=== PATIENT | male | born 1955 | race Caucasian/White ===

== ENCOUNTER 2016-07-23 21:44 | Emergency (ER) | payer MEDICARE ==
[~2016-07-23] VITALS: Ht 177.8 cm; Wt 102.1 kg
[~2016-07-23 21:44] MED LIST: /WARF5TA OR; ACTO15TA OR; CARD240T3 OR; CARDIA XT; CARDIA XT PO; CARI350T OR; CARTIA; CRES20TA OR; FOLI1TAB2 PO; HUMU70IN SC; HYDR-3713 PO; HYDR25TA6 OR; INSULIN 70/30 SQ; LIDO5DIS36 TD; LISI40TA OR; NEUR600T PO; OXYC1SOL PO; PRAD150C PO; PRAV40TA2 PO; SOMA350T PO; SOTA120T PO; TYLE325T5 PO; VALS1TAB46 PO; VALS1TAB47 PO; [UNRECOGNIZED DRUG - CODE] OR; hydrocodone PO
[2016-07-23] MEDS ORDERED: AMLO5TAB2 PO (21:59)
[2016-07-23] MEDS ORDERED: PRAD150C PO (21:59)
[2016-07-23] MEDS ORDERED: ASPI1TAB PO (21:59)
[2016-07-23] MEDS ORDERED: TOUJ1.2I SC (21:59)
[2016-07-23] MEDS ORDERED: BISO5TAB5 PO (21:59)
[2016-07-23] MEDS ORDERED: HYDR12CA PO (21:59)
[2016-07-24 00:12] VITALS: BP 122/58
--- NOTE | 2016-07-24 09:50 | REP ---
RIGHT ELBOW, FOUR VIEWS: There is no evidence of acute fracture or dislocation. There is mild linear ligamentous calcification along the lateral humeral epicondyle. There appears to be soft tissue swelling over the olecranon. I do not see a definite joint effusion. IMPRESSION: No evidence of acute fracture or dislocation. Soft tissue swelling over the olecranon. Mild lateral humeral epicondyle ligamentous calcification. Signed by Sarbjit Helms MD 07/24/2016 04:19 P
== END 2016-07-24 00:05 | disposition home or self-care (01) ==
LOC: M ED 23:20
DX: S50.01XA Contusion of right elbow, initial encounter (principal); X50.9XXA Other and unspecified overexertion or strenuous movements or postures, initial encounter; Y92.019 Unspecified place in single-family (private) house as the place of occurrence of the external cause; Y93.89 Activity, other specified; Y99.8 Other external cause status; I50.9 Heart failure, unspecified; E11.9 Type 2 diabetes mellitus without complications; Z79.899 Other long term (current) drug therapy; Z79.82 Long term (current) use of aspirin; Z79.4 Long term (current) use of insulin; Z88.8 Allergy status to other drugs, medicaments and biological substances; Z88.5 Allergy status to narcotic agent; Z95.0 Presence of cardiac pacemaker; E78.9 Disorder of lipoprotein metabolism, unspecified

== ENCOUNTER 2017-12-29 09:09 | Day surgery (SDC) | payer MEDICARE ==
[~2017-12-29 09:09] MED LIST changes: -/WARF5TA OR; -ACTO15TA OR; -CARD240T3 OR; -CARDIA XT; -CARDIA XT PO; -CARI350T OR; -CARTIA; -CRES20TA OR; -FOLI1TAB2 PO; -HUMU70IN SC; -HYDR-3713 PO; -HYDR25TA6 OR; -INSULIN 70/30 SQ; -LIDO5DIS36 TD; +LIDOCAINE 2% INJ 100 MG/5 ML SDV (FOR ANES.) As Ordered; -LISI40TA OR; -NEUR600T PO; -OXYC1SOL PO; -PRAD150C PO; -PRAV40TA2 PO; +PROPOFOL 200 MG/20 ML VIAL As Ordered; -SOMA350T PO; -SOTA120T PO; -TYLE325T5 PO; -VALS1TAB46 PO; -VALS1TAB47 PO; -[UNRECOGNIZED DRUG - CODE] OR; -hydrocodone PO
[2017-12-29] MEDS: NS 1,000 ML IV (09:25)
[2017-12-29 09:47] LABS: BEDSIDE GLUCOSE 131 MG/DL (80-115)
[2017-12-29] MEDS ORDERED: PROPOFOL 200 MG/20 ML VIAL As Ordered (11:04)
== END 2017-12-29 12:08 | disposition home or self-care (01) ==
LOC: M OPP 09:09
DX: D62 Acute posthemorrhagic anemia (principal); D12.0 Benign neoplasm of cecum; D12.2 Benign neoplasm of ascending colon; D12.3 Benign neoplasm of transverse colon; D12.7 Benign neoplasm of rectosigmoid junction; K57.30 Diverticulosis of large intestine without perforation or abscess without bleeding; K64.8 Other hemorrhoids; K29.70 Gastritis, unspecified, without bleeding; B96.81 Helicobacter pylori [H. pylori] as the cause of diseases classified elsewhere; R00.8 Other abnormalities of heart beat; I25.10 Atherosclerotic heart disease of native coronary artery without angina pectoris; I50.9 Heart failure, unspecified; I11.0 Hypertensive heart disease with heart failure; Z95.1 Presence of aortocoronary bypass graft; Z95.810 Presence of automatic (implantable) cardiac defibrillator; E78.5 Hyperlipidemia, unspecified; E10.9 Type 1 diabetes mellitus without complications; R06.83 Snoring; Z88.5 Allergy status to narcotic agent; Z79.82 Long term (current) use of aspirin; Z79.899 Other long term (current) drug therapy; Z79.4 Long term (current) use of insulin; Z79.01 Long term (current) use of anticoagulants; Z80.1 Family history of malignant neoplasm of trachea, bronchus and lung
CPT/HCPCS: 45385

== ENCOUNTER → 2018-01-06 | Outpatient (CLI) | payer OTHER, MEDICARE | LOC: M PAIN 14:30 | DX: M79.18 Myalgia, other site (principal); M96.1 Postlaminectomy syndrome, not elsewhere classified; E11.9 Type 2 diabetes mellitus without complications; E78.00 Pure hypercholesterolemia, unspecified; I10 Essential (primary) hypertension; Z79.4 Long term (current) use of insulin; Z79.82 Long term (current) use of aspirin; Z79.899 Other long term (current) drug therapy; Z88.5 Allergy status to narcotic agent; Z86.79 Personal history of other diseases of the circulatory system; Z87.891 Personal history of nicotine dependence | CPT/HCPCS: G0463 ==

== ENCOUNTER → 2018-02-01 | Outpatient (CLI) | payer MEDICARE ==
[2018-02-01 16:57] LABS: INR 1.23; PROTHROMBIN TIME 15.7 SECONDS (12.1-14.4)
== END ==
LOC: M LRY 11:16
DX: I48.0 Paroxysmal atrial fibrillation (principal)
CPT/HCPCS: 85610

== ENCOUNTER → 2018-02-15 | Outpatient (CLI) | payer MEDICARE ==
[2018-02-15 16:54] LABS: INR 3.24; PROTHROMBIN TIME 33.8 SECONDS (12.1-14.4)
== END ==
LOC: M LRY 11:40
DX: I48.0 Paroxysmal atrial fibrillation (principal)
CPT/HCPCS: 85610

== ENCOUNTER → 2018-07-21 | Outpatient (CLI) | payer MEDICARE ==
[~2018-07-21] MED LIST changes: +ACTO15TA OR; +AMLO5TAB6 PO; +ASPI81TA26 PO; +BISO5TAB5 PO; +CARD240T3 OR; +CARDIA XT; +CARDIA XT PO; +CARI350T OR; +CARTIA; +COUM1TAB17 OR; +COUM6TAB PO; +CRES10TA PO; +CRES20TA OR; +FOLI1TAB11 PO; +GABA600T4 PO; +HUMU70IN SC; +HYDR-3713 PO; +HYDR-3910 PO; +HYDR12CA PO; +HYDR25TA PO; +HYDR25TA6 OR; +INSUHUMDS SC; +INSULIN 70/30 SQ; +IRBE300T10 PO; +LIDO5DIS41 TD; -LIDOCAINE 2% INJ 100 MG/5 ML SDV (FOR ANES.) As Ordered; +LISI40TA OR; +NEUR600T PO; +OXYC1SOL3 PO; +PANT40TA3 PO; +PRAD150C6 PO; +PRAV40TA2 PO; -PROPOFOL 200 MG/20 ML VIAL As Ordered; +SOMA350T PO; +SOTA120T PO; +TOUJ1.2I SC; +TYLE325T5 PO; +VALS1TAB66 PO; +VALS1TAB67 PO; +[UNRECOGNIZED DRUG - CODE] OR; +hydrocodone PO
[2018-07-21 11:33] LABS: HEMATOCRIT 32.6 % (42.0-52.0); HEMOGLOBIN 10.7 g/dl (13.5-17.5); MEAN CORPUSCULAR HEMOGLOBIN 29.3 pg (27.0-33.0); MEAN CORPUSCULAR HGB CONC 32.8 g/dl (32.0-36.5); MEAN CORPUSCULAR VOLUME 89.3 fl (80.0-96.0); PLATELET COUNT, AUTOMATED 254 10^3/uL (150-450); RED BLOOD COUNT 3.65 10^6/uL (4.30-6.10); WHITE BLOOD COUNT 5.8 10^3/uL (4.0-10.0)
[2018-07-21 12:24] LABS: BLOOD UREA NITROGEN 22 MG/DL (7-18); CALCIUM LEVEL 9.1 MG/DL (8.8-10.2); CARBON DIOXIDE LEVEL 26 MEQ/L (21-32); CHLORIDE LEVEL 106 MEQ/L (98-107); GLOMERULAR FILTRATION RATE > 60.0 (>49); GLUCOSE, FASTING 136 MG/DL (70-100); POTASSIUM SERUM 4.4 MEQ/L (3.5-5.1); SODIUM LEVEL 139 MEQ/L (136-145)
[2018-07-21 12:25] LABS: ALT/SGPT 27 U/L (12-78); BILIRUBIN,TOTAL 0.4 MG/DL (0.2-1.0); TOTAL PROTEIN 7.4 GM/DL (6.4-8.2)
== END ==
LOC: M LRY 09:36
PROVIDERS: ATTEND Internal Medicine Cardiovascular Disease
DX: D64.9 Anemia, unspecified (principal); E11.9 Type 2 diabetes mellitus without complications

== ENCOUNTER → 2018-08-18 | Outpatient (CLI) | payer MEDICARE ==
[2018-08-18 17:56] LABS: HEMATOCRIT 35.4 % (42.0-52.0); HEMOGLOBIN 11.1 g/dl (13.5-17.5); MEAN CORPUSCULAR HEMOGLOBIN 26.6 pg (27.0-33.0); MEAN CORPUSCULAR HGB CONC 31.4 g/dl (32.0-36.5); MEAN CORPUSCULAR VOLUME 84.7 fl (80.0-96.0); PLATELET COUNT, AUTOMATED 241 10^3/uL (150-450); RED BLOOD COUNT 4.18 10^6/uL (4.30-6.10); WHITE BLOOD COUNT 7.4 10^3/uL (4.0-10.0)
[2018-08-18 18:30] LABS: ALBUMIN 3.9 GM/DL (3.2-5.2); ALT/SGPT 27 U/L (12-78); BILIRUBIN,TOTAL 0.3 MG/DL (0.2-1.0); BLOOD UREA NITROGEN 19 MG/DL (7-18); CALCIUM LEVEL 8.8 MG/DL (8.8-10.2); CARBON DIOXIDE LEVEL 29 MEQ/L (21-32); CHLORIDE LEVEL 102 MEQ/L (98-107); GLOMERULAR FILTRATION RATE > 60.0 (>49); GLUCOSE, FASTING 115 MG/DL (70-100); POTASSIUM SERUM 4.8 MEQ/L (3.5-5.1); SODIUM LEVEL 139 MEQ/L (136-145); TOTAL PROTEIN 7.9 GM/DL (6.4-8.2)
== END ==
LOC: M LRY 13:56
PROVIDERS: ATTEND Internal Medicine Cardiovascular Disease
DX: D64.9 Anemia, unspecified (principal); E11.9 Type 2 diabetes mellitus without complications

== ENCOUNTER → 2018-09-22 | Outpatient (CLI) | payer MEDICARE ==
[2018-09-22 13:18] LABS: HEMATOCRIT 35.1 % (42.0-52.0); HEMOGLOBIN 11.3 g/dl (13.5-17.5); MEAN CORPUSCULAR HGB CONC 32.2 g/dl (32.0-36.5); MEAN CORPUSCULAR VOLUME 87.1 fl (80.0-96.0); PLATELET COUNT, AUTOMATED 212 10^3/uL (150-450); RED BLOOD COUNT 4.03 10^6/uL (4.30-6.10); WHITE BLOOD COUNT 7.3 10^3/uL (4.0-10.0)
[2018-09-22 13:25] LABS: ALBUMIN 3.7 GM/DL (3.2-5.2); ALT/SGPT 28 U/L (12-78); BILIRUBIN,TOTAL 0.2 MG/DL (0.2-1.0); BLOOD UREA NITROGEN 21 MG/DL (7-18); CALCIUM LEVEL 8.7 MG/DL (8.8-10.2); CARBON DIOXIDE LEVEL 28 MEQ/L (21-32); CHLORIDE LEVEL 104 MEQ/L (98-107); CREATININE FOR GFR 1.08 MG/DL (0.70-1.30); GLOMERULAR FILTRATION RATE > 60.0 (>49); GLUCOSE, FASTING 135 MG/DL (70-100); POTASSIUM SERUM 4.2 MEQ/L (3.5-5.1); SODIUM LEVEL 139 MEQ/L (136-145); TOTAL PROTEIN 7.2 GM/DL (6.4-8.2)
== END ==
LOC: M LRY 11:17
PROVIDERS: ATTEND Internal Medicine Cardiovascular Disease
DX: D64.9 Anemia, unspecified (principal); E11.9 Type 2 diabetes mellitus without complications

== ENCOUNTER → 2018-10-19 | Outpatient (CLI) | payer MEDICARE ==
[2018-10-19 17:37] LABS: BLOOD UREA NITROGEN 21 MG/DL (7-18); CREATININE FOR GFR 1.02 MG/DL (0.70-1.30); FERRITIN 40 NG/ML (26-388); GLOMERULAR FILTRATION RATE > 60.0 (>49); IRON (FE) 63 UG/DL (65-175); PERCENT SATURATION 17.9 % (19.7-50.0); TOTAL IRON BINDING CAPACITY 351 UG/DL (250-450)
[2018-10-19 17:45] LABS: FOLATE > 24.0 NG/ML; VITAMIN B12 LEVEL 456 PG/ML
[2018-10-19 17:47] LABS: BASO % 0.4 % (0.0-1.0); EOS # 0.2 10^3/uL (0.0-0.50); EOS % 2.3 % (0.0-3.0); HEMATOCRIT 39.3 % (42.0-52.0); HEMOGLOBIN 12.5 g/dl (13.5-17.5); LYMPH # 1.8 10^3/uL (1.5-4.5); LYMPH % 24.6 % (24.0-44.0); MEAN CORPUSCULAR HEMOGLOBIN 27.7 pg (27.0-33.0); MEAN CORPUSCULAR HGB CONC 31.8 g/dl (32.0-36.5); MEAN CORPUSCULAR VOLUME 87.1 fl (80.0-96.0); MONO # 0.8 10^3/uL (0.0-0.8); MONO % 11.1 % (0.0-5.0); NEUTROPHILS # 4.4 10^3/uL (1.8-7.7); NEUTROPHILS % 61.2 % (36.0-66.0); PLATELET COUNT, AUTOMATED 217 10^3/uL (150-450); RED BLOOD COUNT 4.51 10^6/uL (4.30-6.10); WHITE BLOOD COUNT 7.3 10^3/uL (4.0-10.0)
== END ==
LOC: M LRY 11:07
PROVIDERS: ATTEND Internal Medicine Gastroenterology
DX: D62 Acute posthemorrhagic anemia (principal)

== ENCOUNTER → 2018-11-11 | Outpatient (CLI) | payer MEDICARE, OTHER ==
[~2018-11-11] MED LIST changes: +BISO5TAB14 PO; -BISO5TAB5 PO
[2018-11-11 14:02] LABS: BASO % 0.3 % (0.0-1.0); EOS # 0.1 10^3/uL (0.0-0.50); EOS % 1.5 % (0.0-3.0); HEMATOCRIT 35.5 % (42.0-52.0); HEMOGLOBIN 11.6 g/dl (13.5-17.5); LYMPH # 1.6 10^3/uL (1.5-4.5); LYMPH % 20.3 % (24.0-44.0); MEAN CORPUSCULAR HGB CONC 32.7 g/dl (32.0-36.5); MEAN CORPUSCULAR VOLUME 85.7 fl (80.0-96.0); MONO # 0.7 10^3/uL (0.0-0.8); MONO % 9.1 % (0.0-5.0); NEUTROPHILS # 5.4 10^3/uL (1.8-7.7); NEUTROPHILS % 68.3 % (36.0-66.0); PLATELET COUNT, AUTOMATED 226 10^3/uL (150-450); RED BLOOD COUNT 4.14 10^6/uL (4.30-6.10); WHITE BLOOD COUNT 7.9 10^3/uL (4.0-10.0)
[2018-11-11 14:24] LABS: ERYTHROCYTE SEDIMENTATION RATE 30 mm/hr (0-20)
[2018-11-11 14:42] LABS: ALBUMIN 3.8 GM/DL (3.2-5.2); ALT/SGPT 34 U/L (12-78); BILIRUBIN,TOTAL 0.4 MG/DL (0.2-1.0); BLOOD UREA NITROGEN 17 MG/DL (7-18); CARBON DIOXIDE LEVEL 28 MEQ/L (21-32); CHLORIDE LEVEL 103 MEQ/L (98-107); CREATININE FOR GFR 0.99 MG/DL (0.70-1.30); FOLATE > 24.0 NG/ML; GLOMERULAR FILTRATION RATE > 60.0 (>49); GLUCOSE, FASTING 156 MG/DL (70-100); POTASSIUM SERUM 4.5 MEQ/L (3.5-5.1); RHEUMATOID FACTOR QUANT < 10.0 IU/ML (<15.0); SODIUM LEVEL 137 MEQ/L (136-145); THYROID STIMULATING HORMONE 0.912 uIU/ML (0.358-3.740); TOTAL PROTEIN 7.2 GM/DL (6.4-8.2); VITAMIN B12 LEVEL 429 PG/ML
[2018-11-11 15:24] LABS: HEMOGLOBIN A1c 8.5 %
[2018-11-19 08:06] LABS: ANCA-ATYPICAL <1:20 titer (Neg:<1:20); ANTI DS-DNA AB <1:10 titer (.); ANTINUCLEAR ANTIBODIES DIRECT Negative (Negative); CERULOPLASMIN 28.4 mg/dL (16.0-31.0); COPPER PLASMA 120 ug/dL (72-166); CYTOPLASMIC NEUTROP AB ANCA-C <1:20 titer (Neg:<1:20); LEAD BLOOD ADULT 1 ug/dL (0-4); Lyme Disease IgG/IgM Antibodie <0.91 ISR (0.00-0.90); Lyme Disease IgM Ab Quantitati <0.80 index (0.00-0.79); MERCURY LEVEL 1.5 ug/L (0.0-14.9); PERINUCLEAR AB ANCA-P <1:20 titer (Neg:<1:20); SJOGREN'S ANTI SS-A <0.2 AI (0.0-0.9); SJOGREN'S ANTI SS-B <0.2 AI (0.0-0.9); VITAMIN B1 LEVEL WHOLE BLOOD 112.9 nmol/L (66.5-200.0); VITAMIN B6,PYRIDOXAL PHOSPHATE 6.2 ug/L (5.3-46.7); VITAMIN E(ALPHA TOCOPHEROL) 11.8 mg/L (9.0-29.0); VITAMIN E(GAMMA TOCOPHEROL) 1.7 mg/L (0.5-4.9)
[2018-11-26 11:16] LABS: DRVV SCREEN 48.8 SEC
[2018-11-26 11:21] LABS: PTT LUPUS TYPE ANTICOAG SCREEN 1.2 (0-1.2)
[2018-11-26 11:28] LABS: DRVV CONFIRM 40.2 SEC; LUPUS CONFIRM RATIO 1.1
[2018-11-26 11:31] LABS: NORMALIZED RATIO 1.09 (0.00-1.20)
== END ==
LOC: M LAB 12:31
PROVIDERS: ATTEND Psychiatry & Neurology Neurology
DX: G62.9 Polyneuropathy, unspecified (principal); Z79.899 Other long term (current) drug therapy

== ENCOUNTER → 2018-11-16 | Outpatient (CLI) | payer MEDICARE, OTHER ==
[~2018-11-16] MED LIST changes: -BISO5TAB14 PO; +BISO5TAB9 PO; +ISOVUE-370 76% 100ML VIAL (Q9967) As Ordered ONE
--- NOTE | 2018-11-17 12:29 | REP ---
CT CERVICAL SPINE IV CONTRAST: HISTORY: Neck pain. Comparison CT study is from April 26, 2014. TECHNIQUE: Helical scanning is acquired and [address] images are reformatted. Coronal and sagittal MPR images are generated. Contrast enhancement dose is 75 mL of intravenous Isovue 370. CT FINDINGS: There is extensive vascular calcification in both carotid artery bifurcations in a manner suggesting the possibility of a high-grade stenosis of the internal carotid arteries bilaterally. MRA angiography for further evaluation. Right vertebral artery is smaller than its left-sided counterpart but both are patent. There are scattered normal-sized cervical lymph nodes. No other extra vertebral abnormality. There is mild straightening of the normal cervical lordosis. Vertebral body heights are preserved. Alignment is normal in the cervical spine. At C1-2, there is osteoarthritis of the articulation between the dens and the anterior arch of C1. At the C2-3 disc level, there is minimal diffuse disc bulging. No foraminal narrowing or central canal stenosis is seen. At C3-C4, diffuse disc bulging with some calcification of the bulging disc. No central canal stenosis is seen. No bony foraminal encroachment. At C4-C5, there is degenerative narrowing of the disc and diffuse disc bulging is seen. There is left-sided uncovertebral spurring mild in degree. Minimal spurring is seen on the right. There are facet hypertrophy changes bilaterally as well. At the C5-6, there are similar changes with diffuse disc bulging and calcification in the bulging disc. No bony foraminal stenosis is seen. There are facet osteoarthritic changes. These findings are unchanged from the comparison study. At C 67, there is a moderate size calcified central disc bulge effacing the bony spinal canal. There is right-sided uncovertebral spurring producing neural foraminal encroachment. Minimal spurring is noted on the left. Findings are unchanged. At C7-T1, there is mild diffuse disc bulging as well. IMPRESSION: Degenerative spondylosis changes radiographically stable from April 26, 2014. There is multilevel foraminal spurring. This is most pronounced at C6-7. Also noted is extensive carotid bifurcation and arterial calcification and evidence of substantial proximal ICA stenosis. Correlation with MR angiography of the carotids should be considered. Electronically Signed by Abdullahi Quesada MD 11/17/2018 01:43 P
== END ==
LOC: M RAD 16:51
PROVIDERS: ATTEND Psychiatry & Neurology Neurology
DX: M25.78 Osteophyte, vertebrae (principal); M50.20 Other cervical disc displacement, unspecified cervical region
CPT/HCPCS: 72126; Q9967

== ENCOUNTER 2019-04-26 08:27 | Day surgery (SDC) | payer MEDICARE ==
[~2019-04-26] VITALS: Ht 177.8 cm; Wt 107.0 kg
[~2019-04-26 08:27] MED LIST changes: +BISO5TAB14 PO; -BISO5TAB9 PO; -IRBE300T10 PO; +IRBE300T7 PO; -ISOVUE-370 76% 100ML VIAL (Q9967) As Ordered ONE; +NS 1,000 ML IV ONE
[2019-04-26] MEDS ORDERED: propofoL 200 MG/20 ML VIAL As Ordered ONE ×2 (09:01→10:40)
[2019-04-26] MEDS ORDERED: LIDOCAINE 2% INJ 100 MG/5 ML SDV (FOR ANES.) As Ordered ONE (09:02)
[2019-04-26] MEDS ORDERED: fentaNYL 100 MCG/2 ML INJECTION (J3010) As Ordered ONE (09:43)
--- NOTE | 2019-04-26 11:26 | ROOR ---
Patient Name: Juan Freitas Procedure Date: 04/26/2019 10:08 AM Date of : 1955 Age: 63 Room: [facility] Gender: Male Note Status: Finalized Procedure: Small bowel enteroscopy Indications: Iron deficiency anemia Providers: Vance Morales MD Referring MD: Obed Brownlee MD Requesting Provider: Medicines: Monitored Anesthesia Care Complications: No immediate complications. Procedure: Pre-Anesthesia Assessment: - Prior to the procedure, a History and Physical was performed, and patient medications and allergies were reviewed. The patient is competent. The risks and benefits of the procedure and the sedation options and risks were discussed with the patient. All questions were answered and informed consent was obtained. Patient identification and proposed procedure were verified by the physician, the nurse and the anesthesiologist in the procedure room. Mental Status Examination: alert and oriented. Airway Examination: normal oropharyngeal airway and neck mobility. Respiratory Examination: clear to auscultation. CV Examination: normal. Prophylactic Antibiotics: The patient does not require prophylactic antibiotics. Prior Anticoagulants: The patient has taken no previous anticoagulant or antiplatelet agents. ASA Grade Assessment: III - A patient with severe systemic disease. After reviewing the risks and benefits, the patient was deemed in satisfactory condition to undergo the procedure. The anesthesia plan was to use monitored anesthesia care (MAC). Immediately prior to administration of medications, the patient was re-assessed for adequacy to receive sedatives. The heart rate, respiratory rate, oxygen saturations, blood pressure, adequacy of pulmonary ventilation, and response to care were monitored throughout the procedure. The physical status of the patient was re-assessed after the procedure. The Colonoscope was introduced through the mouth, and advanced to the second part of duodenum. The upper GI endoscopy was accomplished without difficulty. The patient tolerated the procedure well. Findings: LA Grade A (one or more mucosal breaks less than 5 mm, not extending between tops of 2 mucosal folds) esophagitis with no bleeding was found in the distal esophagus. Biopsies were taken with a cold forceps for histology. Verification of patient identification for the specimen was done by the physician and nurse using the patient's name, date and medical record number. Estimated blood loss was minimal. One non-bleeding cratered gastric ulcer with a clean ulcer base (Frank Class III) was found at the incisura. The lesion was 12 mm in largest dimension. Biopsies were taken with a cold forceps for histology. No gross lesions were noted in the entire examined duodenum. Biopsies for histology were taken with a cold forceps for evaluation of celiac disease. Normal mucosa was found in the jejunum. Upto 50 cm of small bowel examined. Impression: - LA Grade A reflux esophagitis. Rule out Gore's esophagus. Biopsied. - Non-bleeding gastric ulcer with a clean ulcer base (Frank Class III). Biopsied. - No gross lesions in the entire examined duodenum. Biopsied. - Normal mucosa was found in the jejunum. Recommendation: - Patient has a contact number available for emergencies. The signs and symptoms of potential delayed complications were discussed with the patient. Return to normal activities tomorrow. Written discharge instructions were provided to the patient. - High fiber diet. - Continue present medications. 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 - Follow an antireflux regimen. - Await pathology results. - Telephone GI clinic for pathology results in 2 weeks. - Return to primary care physician. Vance Morales MD Vance Morales MD 04/26/2019 11:26:21 AM Electronically signed by Vance Morales MD Number of Addenda: 0 Note Initiated On: 04/26/2019 10:08 AM Estimated Blood Loss: Estimated blood loss was minimal.
[2019-04-26 11:35] VITALS: BP 158/87
--- NOTE | 2019-04-26 12:20 | ROOR ---
Patient Name: Juan Freitas Procedure Date: 04/26/2019 10:09 AM Date of : 1955 Age: 63 Room: [facility] Gender: Male Note Status: Finalized Procedure: Colonoscopy Indications: Unexplained iron deficiency anemia Providers: Vance Morales MD Referring MD: Obed Brownlee MD Requesting Provider: Medicines: Monitored Anesthesia Care Complications: No immediate complications. Procedure: Pre-Anesthesia Assessment: - Prior to the procedure, a History and Physical was performed, and patient medications and allergies were reviewed. The patient is competent. The risks and benefits of the procedure and the sedation options and risks were discussed with the patient. All questions were answered and informed consent was obtained. Patient identification and proposed procedure were verified by the physician, the nurse and the anesthesiologist in the procedure room. Mental Status Examination: alert and oriented. Airway Examination: normal oropharyngeal airway and neck mobility. Respiratory Examination: clear to auscultation. CV Examination: normal. Prophylactic Antibiotics: The patient does not require prophylactic antibiotics. Prior Anticoagulants: The patient has taken no previous anticoagulant or antiplatelet agents. ASA Grade Assessment: III - A patient with severe systemic disease. After reviewing the risks and benefits, the patient was deemed in satisfactory condition to undergo the procedure. The anesthesia plan was to use monitored anesthesia care (MAC). Immediately prior to administration of medications, the patient was re-assessed for adequacy to receive sedatives. The heart rate, respiratory rate, oxygen saturations, blood pressure, adequacy of pulmonary ventilation, and response to care were monitored throughout the procedure. The physical status of the patient was re-assessed after the procedure. The Colonoscope was introduced through the anus and advanced to the terminal ileum, with identification of the appendiceal orifice and IC valve. The colonoscopy was performed without difficulty. The patient tolerated the procedure well. The quality of the bowel preparation was good. The ileocecal valve, appendiceal orifice, and rectum were photographed. Scope insertion time was 3 minutes. Scope withdrawal time was 9 minutes. The total duration of the procedure was 12 minutes. Findings: The perianal and digital rectal examinations were normal. The terminal ileum appeared normal. Three sessile polyps were found in the ascending colon. The polyps were 3 to 5 mm in size. These polyps were removed with a cold snare. Resection and retrieval were complete. Verification of patient identification for the specimen was done by the physician and nurse using the patient's name, date and medical record number. Estimated blood loss was minimal. Multiple small and large-mouthed diverticula were found from sigmoid to descending colon. There was no evidence of diverticular bleeding. Non-bleeding external and internal hemorrhoids were found during retroflexion. The hemorrhoids were small. Impression: - The examined portion of the ileum was normal. - Three 3 to 5 mm polyps in the ascending colon, removed with a cold snare. Resected and retrieved. - Moderate diverticulosis from sigmoid to descending colon. There was no evidence of diverticular bleeding. - Non-bleeding external and internal hemorrhoids. Recommendation: - Patient has a contact number available for emergencies. The signs and symptoms of potential delayed complications were discussed with the patient. Return to normal activities tomorrow. Written discharge instructions were provided to the patient. - High fiber diet. - Continue present medications. - Await pathology results. - Repeat colonoscopy in 3 - 5 years for surveillance based on pathology results. - Telephone GI clinic for pathology results in 2 weeks. - Return to primary care physician. Vance Morales MD Vance Morales MD 04/26/2019 12:20:07 PM Electronically signed by Vance Morales MD Number of Addenda: 0 Note Initiated On: 04/26/2019 10:09 AM Estimated Blood Loss: Estimated blood loss was minimal.
== END 2019-04-26 11:35 | disposition home or self-care (01) ==
LOC: M OPP 08:27
PROVIDERS: ATTEND Internal Medicine Gastroenterology
DX: K64.8 Other hemorrhoids (principal); D12.2 Benign neoplasm of ascending colon; K57.30 Diverticulosis of large intestine without perforation or abscess without bleeding; K21.0 Gastro-esophageal reflux disease with esophagitis; K25.9 Gastric ulcer, unspecified as acute or chronic, without hemorrhage or perforation; D50.9 Iron deficiency anemia, unspecified; Z86.010 Personal history of colon polyps; I48.91 Unspecified atrial fibrillation; I50.9 Heart failure, unspecified; E11.9 Type 2 diabetes mellitus without complications; I25.709 Atherosclerosis of coronary artery bypass graft(s), unspecified, with unspecified angina pectoris; Z79.4 Long term (current) use of insulin; Z79.899 Other long term (current) drug therapy; Z88.5 Allergy status to narcotic agent; Z95.810 Presence of automatic (implantable) cardiac defibrillator; Z87.891 Personal history of nicotine dependence
CPT/HCPCS: 43239; 45385; 88305; J3010

== ENCOUNTER → 2019-06-23 | Outpatient (CLI) | payer MEDICARE ==
[~2019-06-23] MED LIST changes: -NS 1,000 ML IV ONE
[2019-06-23 20:09] LABS: HEMATOCRIT 25.8 % (42.0-52.0); HEMOGLOBIN 7.1 g/dl (13.5-17.5); MEAN CORPUSCULAR HEMOGLOBIN 23.8 pg (27.0-33.0); MEAN CORPUSCULAR HGB CONC 27.5 g/dl (32.0-36.5); MEAN CORPUSCULAR VOLUME 86.6 fl (80.0-96.0); PLATELET COUNT, AUTOMATED 288 10^3/uL (150-450); RED BLOOD COUNT 2.98 10^6/uL (4.30-6.10); WHITE BLOOD COUNT 10.7 10^3/uL (4.0-10.0)
[2019-06-23 20:27] LABS: ALBUMIN 3.7 GM/DL (3.2-5.2); ALT/SGPT 24 U/L (12-78); BILIRUBIN,TOTAL 0.3 MG/DL (0.2-1.0); BLOOD UREA NITROGEN 34 MG/DL (7-18); CALCIUM LEVEL 8.7 MG/DL (8.8-10.2); CARBON DIOXIDE LEVEL 27 MEQ/L (21-32); CHLORIDE LEVEL 106 MEQ/L (98-107); CREATININE FOR GFR 1.25 MG/DL (0.70-1.30); GLOMERULAR FILTRATION RATE > 60.0 (>49); GLUCOSE, FASTING 166 MG/DL (70-100); POTASSIUM SERUM 4.7 MEQ/L (3.5-5.1); SODIUM LEVEL 139 MEQ/L (136-145); TOTAL PROTEIN 7.3 GM/DL (6.4-8.2)
== END ==
LOC: M LRY 15:04
PROVIDERS: ATTEND Internal Medicine Cardiovascular Disease
DX: D64.9 Anemia, unspecified (principal)

== ENCOUNTER → 2019-06-30 | Outpatient (CLI) | payer MEDICARE ==
[~2019-06-30] MED LIST changes: +FURO20TA2 PO; +POTA10CA32 PO
== END ==
LOC: M LAB 08:30
PROVIDERS: ATTEND Internal Medicine Gastroenterology
DX: D50.9 Iron deficiency anemia, unspecified (principal)

== ENCOUNTER 2019-07-01 08:00 | Outpatient (CLI) | payer MEDICARE ==
[~2019-07-01] VITALS: Ht 177.8 cm; Wt 106.0 kg
[~2019-07-01 08:00] MED LIST changes: -FURO20TA2 PO; -POTA10CA32 PO
[2019-07-01 09:00] VITALS: BP 130/55
[2019-07-01 10:00] VITALS: BP 137/63
[2019-07-01 10:15] VITALS: BP 155/70
[2019-07-01 10:50] VITALS: BP 145/64
[2019-07-01 12:00] VITALS: BP 178/75
[2019-07-01] MEDS ORDERED: FURO20TA2 PO (12:15)
[2019-07-01] MEDS ORDERED: POTA10CA32 PO (12:16)
[2019-07-01 12:30] VITALS: BP 174/72
== END 2019-07-01 12:30 | disposition home or self-care (01) ==
LOC: M INFU 08:00
PROVIDERS: ATTEND Internal Medicine Gastroenterology
DX: D50.9 Iron deficiency anemia, unspecified (principal); Z88.8 Allergy status to other drugs, medicaments and biological substances
CPT/HCPCS: 36430; P9016

== ENCOUNTER → 2019-07-09 | Outpatient (CLI) | payer MEDICARE ==
[~2019-07-09] MED LIST changes: +FURO20TA2 PO; +POTA10CA32 PO
== END ==
LOC: M LABSMTC 11:21
PROVIDERS: ATTEND Internal Medicine
DX: Z01.818 Encounter for other preprocedural examination (principal); Z11.59 Encounter for screening for other viral diseases; Z20.818 Contact with and (suspected) exposure to other bacterial communicable diseases

== ENCOUNTER → 2019-07-11 | Outpatient (CLI) | payer MEDICARE ==
[2019-07-11 18:02] LABS: BASO # 0.1 10^3/uL (0.0-0.2); BASO % 0.7 % (0.0-1.0); EOS # 0.2 10^3/uL (0.0-0.5); EOS % 2.4 % (0.0-3.0); HEMATOCRIT 32.1 % (42.0-52.0); HEMOGLOBIN 9.2 g/dl (13.5-17.5); LYMPH # 1.7 10^3/uL (1.5-5.0); LYMPH % 21.9 % (24.0-44.0); MEAN CORPUSCULAR HEMOGLOBIN 23.3 pg (27.0-33.0); MEAN CORPUSCULAR HGB CONC 28.7 g/dl (32.0-36.5); MEAN CORPUSCULAR VOLUME 81.3 fl (80.0-96.0); MONO # 0.8 10^3/uL (0.0-0.8); MONO % 11.1 % (0.0-5.0); NEUTROPHILS # 4.8 10^3/uL (1.5-8.5); NEUTROPHILS % 63.5 % (36.0-66.0); PLATELET COUNT, AUTOMATED 365 10^3/uL (150-450); RED BLOOD COUNT 3.95 10^6/uL (4.30-6.10); WHITE BLOOD COUNT 7.6 10^3/uL (4.0-10.0)
[2019-07-11 18:27] LABS: BLOOD UREA NITROGEN 25 MG/DL (7-18); CREATININE FOR GFR 1.06 MG/DL (0.70-1.30); FERRITIN 22 NG/ML (26-388); GLOMERULAR FILTRATION RATE > 60.0 (>49); IRON (FE) 23 UG/DL (65-175); PERCENT SATURATION 5.7 % (19.7-50.0); TOTAL IRON BINDING CAPACITY 406 UG/DL (250-450)
== END ==
LOC: M LRY 16:15
PROVIDERS: ATTEND Internal Medicine Gastroenterology
DX: K92.1 Melena (principal)

== ENCOUNTER 2019-07-12 08:50 | Day surgery (SDC) | payer MEDICARE ==
[~2019-07-12] VITALS: Ht 177.8 cm; Wt 104.8 kg
[~2019-07-12 08:50] MED LIST changes: +LR 1,000 ML IV ONE
[2019-07-12] MEDS ORDERED: fentaNYL 100 MCG/2 ML INJECTION (J3010) As Ordered ONE ×2 (09:57→10:23)
[2019-07-12] MEDS ORDERED: LIDOCAINE 2% 100MG/5ML SDV (FOR ANES.) As Ordered ONE ×2 (09:57→10:27)
[2019-07-12] MEDS ORDERED: propofoL 200 MG/20 ML VIAL As Ordered ONE ×2 (09:57→11:24)
[2019-07-12] MEDS ORDERED: propofoL 500 MG/50 ML VIAL As Ordered ONE (10:25)
--- NOTE | 2019-07-12 11:59 | ROOR ---
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 Procedure: Pre-Anesthesia Assessment: - Prior to the procedure, a History and Physical was performed, and patient medications and allergies were reviewed. The patient is competent. The risks and benefits of the procedure and the sedation options and risks were discussed with the patient. All questions were answered and informed consent was obtained. Patient identification and proposed procedure were verified by the physician, the nurse and the anesthesiologist in the procedure room. Mental Status Examination: alert and oriented. Airway Examination: normal oropharyngeal airway and neck mobility. Respiratory Examination: clear to auscultation. CV Examination: normal. Prophylactic Antibiotics: The patient does not require prophylactic antibiotics. Prior Anticoagulants: The patient has taken no previous anticoagulant or antiplatelet agents. ASA Grade Assessment: III - A patient with severe systemic disease. After reviewing the risks and benefits, the patient was deemed in satisfactory condition to undergo the procedure. The anesthesia plan was to use monitored anesthesia care (MAC). Immediately prior to administration of medications, the patient was re-assessed for adequacy to receive sedatives. The heart rate, respiratory rate, oxygen saturations, blood pressure, adequacy of pulmonary ventilation, and response to care were monitored throughout the procedure. The physical status of the patient was re-assessed after the procedure. The Endoscope was introduced through the mouth, and advanced to the proximal jejunum. The small bowel enteroscopy was accomplished without difficulty. The patient tolerated the procedure well. Findings: No gross lesions were noted in the entire esophagus. The entire examined stomach was normal. Patchy erythematous mucosa without active bleeding and with no stigmata of bleeding was found in the duodenal bulb. Three angioectasias with bleeding were found in the proximal jejunum. Coagulation for bleeding prevention using argon plasma at 0.8 liters/minute and 20 ellis was successful. For hemostasis, three hemostatic clips were successfully placed. There was no bleeding at the end of the procedure. An area in the proximal jejunum to the extent examined in push enteroscopy was tattooed with an injection of 1 mL of Zita ink. Impression: - No gross lesions in esophagus. - Normal stomach. - Erythematous duodenopathy. 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 Treated with argon plasma coagulation (APC). Clips were placed. - An area in the proximal jejunum to the extent examined in push enteroscopy was tattooed. - No specimens collected. Recommendation: - The patient will be observed post-procedure, until all discharge criteria are met. - Patient has a contact number available for emergencies. The signs and symptoms of potential delayed complications were discussed with the patient. Return to normal activities tomorrow. Written discharge instructions were provided to the patient. - Full liquid diet today, then advance as tolerated to high fiber diet. - Check hemogram with white blood cell count and platelets and iron studies (UIBC, iron) in 2 weeks. - Telephone GI clinic if symptomatic. - Return to GI clinic in [facility] (address [address], [address], [place] [address]) in 4 -- 6 weeks. Please call GI clinic @ [phone] for apppointment date and time. - Return to primary care physician. Vance Morales MD Vance Morales MD 07/12/2019 11:59:01 AM Electronically signed by Vance Morales MD Number of Addenda: 0 Note Initiated On: 07/12/2019 8:02 AM Estimated Blood Loss: Estimated blood loss was minimal.
[2019-07-12 12:35] VITALS: BP 126/63
== END 2019-07-12 12:38 | disposition home or self-care (01) ==
LOC: M SDC 08:50
PROVIDERS: ATTEND Internal Medicine Gastroenterology
DX: K55.21 Angiodysplasia of colon with hemorrhage (principal); D50.0 Iron deficiency anemia secondary to blood loss (chronic); K31.819 Angiodysplasia of stomach and duodenum without bleeding; I48.91 Unspecified atrial fibrillation; I25.10 Atherosclerotic heart disease of native coronary artery without angina pectoris; E10.40 Type 1 diabetes mellitus with diabetic neuropathy, unspecified; Z79.4 Long term (current) use of insulin; E78.5 Hyperlipidemia, unspecified; I10 Essential (primary) hypertension; Z79.899 Other long term (current) drug therapy; Z88.5 Allergy status to narcotic agent
CPT/HCPCS: 44366; 44799; J3010

== ENCOUNTER → 2019-08-01 | Outpatient (CLI) | payer MEDICARE ==
[~2019-08-01] MED LIST changes: -LR 1,000 ML IV ONE
[2019-08-01 12:07] LABS: BASO % 0.5 % (0.0-1.0); EOS # 0.3 10^3/uL (0.0-0.5); EOS % 3.7 % (0.0-3.0); HEMATOCRIT 35.3 % (42.0-52.0); HEMOGLOBIN 10.4 g/dl (13.5-17.5); LYMPH # 1.7 10^3/uL (1.5-5.0); LYMPH % 22.1 % (24.0-44.0); MEAN CORPUSCULAR HEMOGLOBIN 23.6 pg (27.0-33.0); MEAN CORPUSCULAR HGB CONC 29.5 g/dl (32.0-36.5); MEAN CORPUSCULAR VOLUME 80.2 fl (80.0-96.0); MONO # 0.7 10^3/uL (0.0-0.8); MONO % 8.6 % (0.0-5.0); NEUTROPHILS % 64.8 % (36.0-66.0); PLATELET COUNT, AUTOMATED 252 10^3/uL (150-450); WHITE BLOOD COUNT 7.8 10^3/uL (4.0-10.0)
== END ==
LOC: M LRY 10:06
PROVIDERS: ATTEND Internal Medicine Gastroenterology
DX: D50.9 Iron deficiency anemia, unspecified (principal); K55.21 Angiodysplasia of colon with hemorrhage

== ENCOUNTER → 2019-10-20 | Outpatient (CLI) | payer MEDICARE ==
[~2019-10-20] MED LIST changes: +AMLO1TAB24 PO; -AMLO5TAB6 PO; -COUM6TAB PO; +COUM6TAB10 PO; +PANT40TA29 PO; -PANT40TA3 PO
== END ==
LOC: M LABSMTC 11:05
PROVIDERS: ATTEND Internal Medicine Cardiovascular Disease
DX: Z11.59 Encounter for screening for other viral diseases (principal)

== ENCOUNTER → 2019-10-20 | Outpatient (CLI) | payer MEDICARE | LOC: M LABSMTC 11:50 | PROVIDERS: ATTEND Internal Medicine Cardiovascular Disease | DX: Z11.59 Encounter for screening for other viral diseases (principal) | CPT/HCPCS: C9803; U0003 ==

== ENCOUNTER → 2019-12-29 | Outpatient (CLI) | payer MEDICARE | LOC: M LABSMTC 12:10 | PROVIDERS: ATTEND Internal Medicine Cardiovascular Disease | DX: Z11.59 Encounter for screening for other viral diseases (principal) | CPT/HCPCS: C9803; U0003 ==

== ENCOUNTER 2022-10-10 10:00 | Day surgery (SDC) | payer MEDICARE ==
[~2022-10-10] VITALS: Ht 177.8 cm; Wt 107.9 kg
[~2022-10-10 10:00] MED LIST changes: +NS 1,000 ML IV ONE; -POTA10CA32 PO; +POTA10CA60 PO; +ROSU40TA4 PO; +fentaNYL 100 MCG/2 ML INJECTION As Ordered ONE; +propofoL 200 MG/20 ML VIAL As Ordered ONE
[2022-10-10] MEDS ORDERED: LIDOCAINE 2% 100MG/5ML SDV (FOR ANES.) As Ordered ONE (11:01)
[2022-10-10] MEDS ORDERED: propofoL 200 MG/20 ML VIAL As Ordered ONE (11:01)
[2022-10-10 12:47] VITALS: TEMP 97
[2022-10-10 13:12] VITALS: BP 160/74; O2SAT 97
== END 2022-10-10 13:26 | disposition home or self-care (01) ==
LOC: M OPP 10:00
PROVIDERS: ATTEND Internal Medicine Gastroenterology
DX: K55.21 Angiodysplasia of colon with hemorrhage (principal); D50.9 Iron deficiency anemia, unspecified; K29.70 Gastritis, unspecified, without bleeding; Z87.891 Personal history of nicotine dependence; Z79.02 Long term (current) use of antithrombotics/antiplatelets; Z79.4 Long term (current) use of insulin; Z79.82 Long term (current) use of aspirin; Z79.891 Long term (current) use of opiate analgesic; Z79.899 Other long term (current) drug therapy; Z88.5 Allergy status to narcotic agent

== ENCOUNTER → 2023-08-27 | Outpatient (CLI) | payer MEDICARE ==
[~2023-08-27] MED LIST changes: -HYDR-3910 PO; -HYDR25TA PO; +HYDR25TA87 PO; +HYDR25TA88 PO; +IRBE300T25 PO; -IRBE300T7 PO; -NS 1,000 ML IV ONE; -POTA10CA60 PO; +POTA10CA70 PO; -ROSU40TA4 PO; +ROSU40TA63 PO; -fentaNYL 100 MCG/2 ML INJECTION As Ordered ONE; -propofoL 200 MG/20 ML VIAL As Ordered ONE
== END ==
LOC: M RAD 09:34
PROVIDERS: ATTEND Surgery Vascular Surgery
DX: I65.23 Occlusion and stenosis of bilateral carotid arteries (principal)

== ENCOUNTER → 2023-10-26 | Outpatient (REF) | payer MEDICARE | LOC: M LAB REF 16:59 | PROVIDERS: ATTEND Internal Medicine Nephrology | DX: D50.9 Iron deficiency anemia, unspecified (principal) ==

== ENCOUNTER → 2023-12-03 | Outpatient (CLI) | payer MEDICARE ==
[~2023-12-03] MED LIST changes: +GABA-1490 PO; -GABA600T4 PO; -ROSU40TA63 PO; +ROSU40TA81 PO
== END ==
LOC: M RAD 08:21
PROVIDERS: ATTEND Internal Medicine Nephrology
DX: N18.32 Chronic kidney disease, stage 3b (principal); I70.1 Atherosclerosis of renal artery